=== PATIENT | female | born 1970 | race Caucasian/White ===

== ENCOUNTER 2016-07-15 14:49 | Emergency (ER) | payer BC, OTHER ==
[~2016-07-15] VITALS: Ht 165.1 cm; Wt 54.6 kg
[2016-07-15 14:58] VITALS: TEMP 36.6; Ht 165.1 cm; Wt 54.6 kg
[2016-07-15 16:26] LABS: BASO % 0.4 %; BASO ABS # 0.05 K/uL (0-0.2); COMPLETE YES; EOS % 0.3 %; HEMATOCRIT 40.6 % (37-47); IG% 0.3 %; LYMPH % 23.9 %; LYMPH ABS # 2.92 K/uL (1.2-3.4); MEAN CELL VOLUME 90.2 fL (80-100); MEAN CORPUSCULAR HEMOGLOBIN 30.9 pg (25-34); MEAN CORPUSCULAR HGB CONC 34.2 g/dl (32-36); MEAN PLATELET VOLUME 9.5 fL (7.4-10.4); MONO % 6.7 %; NEUT % 68.4 %; PLATELET COUNT 332 K/uL (130-400); WHITE BLOOD COUNT 12.23 K/uL (4.8-10.8)
--- NOTE | 2016-07-15 16:35 | DIAGNOSTIC IMAGING REPORT ---
CHEST ONE VIEW PORTABLE CLINICAL HISTORY: Atypical chest pain COMPARISON STUDY: No previous studies for comparison. FINDINGS: The cardiac and mediastinal contours are normal. There is no evidence of focal pulmonary consolidation. There is no evidence of failure. No pleural effusions are visualized.[ There are minimal basilar atelectatic changes. No pneumothorax is visualized. IMPRESSION: No active disease in the chest. Electronically signed by: Earl Adair M.D. 07/15/2016 4:34 PM Dictated Date/Time: 07/15/2016 4:33 PM
[2016-07-15] MEDS ORDERED: ALEN70TA2 PO (16:45)
[2016-07-15] MEDS ORDERED: ONDA4TAB46 PO (16:45)
[2016-07-15] MEDS ORDERED: ASPI81TA28 PO (16:45)
[2016-07-15] MEDS ORDERED: ERGO500037 PO (16:45)
[2016-07-15] MEDS ORDERED: CLON0.5T3 PO (16:45)
[2016-07-15] MEDS ORDERED: RMRS/45 PO (16:45)
[2016-07-15] MEDS ORDERED: MONT1TAB3 PO (16:45)
[2016-07-15] MEDS ORDERED: FLUD0.1T10 PO (16:45)
[2016-07-15] MEDS ORDERED: METO25TA3 PO (16:45)
[2016-07-15] MEDS ORDERED: NALT50TA5 PO (16:45)
[2016-07-15] MEDS ORDERED: VNTHFA/IN INH (16:45)
[2016-07-15] MEDS ORDERED: SERT-234 PO (16:45)
[2016-07-15] MEDS ORDERED: ADAL1KIT SC (16:45)
[2016-07-15] MEDS ORDERED: PANT40TA PO (16:45)
[2016-07-15] MEDS ORDERED: IBUP-1050 PO (16:45)
[2016-07-15] MEDS ORDERED: TRAZ1TAB52 PO (16:45)
[2016-07-15 16:47] LABS: BUN/CREATININE RATIO 17.9 (10-20); CALCIUM 8.9 mg/dl (8.5-10.1); CREATININE 0.8 mg/dl (0.60-1.20)
[2016-07-15 16:49] LABS: ALB/GLOB RATIO 1.2 (0.9-2)
--- NOTE | 2016-07-15 17:31 | EMERGENCY ROOM VISIT NOTE ---
History First contact with patient: 15:57 Chief Complaint: CHEST PAIN Stated Complaint: SEVERE CHEST PAIN WHEN BREATHING Nursing Triage Summary: Patient reports sharp pain in chest and back states it is worse with a deep breath. Patient was at [facility] prior to coming here. Denies any cardiac history. History of Present Illness The patient is a 45 year old female who presents to the Emergency Room with complaints of sharp right-sided back pain with radiation into the chest which began last night. The patient states that the pain radiates from her back into her chest. She states it is worse with movement and deep breath. She rates the discomfort a 10/10 and has not been taking any medication for pain. The patient reports that she has been weak recently. She denies any fevers, chills , cough, shortness of breath, abdominal pain, nausea or vomiting. The pain does not radiate into the arms or jaw. She does report that she has a family history of cardiac disease in her mother and a family history of blood clots in her father. She denies any personal history of cardiac disease or blood clots. She is not a smoker, denies taking control pills and has not had any recent travel. She denies any recent leg pain or swelling. The patient does report a history of anorexia and psoriatic arthritis. Review of Systems A complete 10-point Review of Systems was discussed with the patient, with pertinent positives and negatives listed in the History of Present Illness. All remaining Review of Systems questions can be considered negative unless otherwise specified. Past Medical/Surgical History Anorexia, psoriatic arthritis Social History Smoking Status: Never Smoker Alcohol Use: none Marital Status: Housing Status: lives with significant other Current/Historical Medications Scheduled Adalimumab (Humira), 40 MG SC [id number] Alendronate Sodium (Fosamax), 70 MG PO WK Aspirin (Aspirin Ec), 81 MG PO DIRECTED Clonazepam (Klonopin), 1.25 MG PO DIRECTED Ergocalciferol (Vitamin D 45546 Unit), 50,000 UNIT PO WK Fludrocortisone Acetate (Florinef), 200 MCG PO QAM Metoprolol Succinate (Toprol Xl), 12.5 MG PO BID Mirtazapine (Mirtazapine), 45 MG PO HS Montelukast Sodium (Singulair), 10 MG PO QAM Naltrexone Hcl (Naltrexone Hcl), 1 TAB PO HS Pantoprazole (Protonix), 40 MG PO QAM Sertraline (Zoloft), 300 MG PO QAM Trazodone Hcl (Desyrel), 150 MG PO HS Scheduled PRN Albuterol Hfa (Ventolin Hfa), 2-4 PUFFS INH Q6H PRN for Shortness of Breath Ibuprofen (Advil), 200-600 MG PO Q4H PRN for Pain or Fever Ondansetron Hcl (Zofran), 4 MG PO for Nausea Allergies Coded Allergies: Cephalexin (Verified Allergy, Severe, HIVES, 07/15/16) Cephalosporins (Verified Allergy, Severe, HIVES, 07/15/16) Adhesives (Verified Allergy, Intermediate, SKIN BLISTERS, 07/15/16) Physical Exam Vital Signs Date Time Temp Pulse Resp B/P Pulse Ox O2 Delivery O2 Flow Rate FiO2 07/15/16 17:43 67 20 97/55 95 07/15/16 14:58 36.6 73 20 108/69 97 Room Air Physical Exam VITALS: Vitals are noted on the nurse's note and reviewed by myself. Vital signs stable. GENERAL: This is a 45-year-old female, in no acute distress, nondiaphoretic, well-developed well-nourished. SKIN: Capillary reflex less than 2 seconds. HEENT: Normocephalic. PERRLA. EOMI. Nares patent. Mucous membranes moist. Neck is supple without nuchal rigidity. HEART: Regular rate and rhythm without murmurs gallops or rubs. LUNGS: Clear to auscultation bilaterally without wheezes, rales or rhonchi. No retractions or accessory muscle use. ABDOMEN: Positive bowel sounds x 4. Soft, nontender. MUSCULOSKELETAL: No tenderness to palpation of the back or chest wall. NEURO: Patient was alert and oriented to person place and time. Normal sensation to light and sharp touch. Medical Decision & Procedures ER Provider Diagnostic Interpretation: CHEST ONE VIEW PORTABLE CLINICAL HISTORY: Atypical chest pain COMPARISON STUDY: No previous studies for comparison. FINDINGS: The cardiac and mediastinal contours are normal. There is no evidence of focal pulmonary consolidation. There is no evidence of failure. No pleural effusions are visualized.[ There are minimal basilar atelectatic changes. No pneumothorax is visualized. IMPRESSION: No active disease in the chest. Laboratory Results 07/15/16 16:10 Red Blood Count 4.50, Mean Corpuscular Volume 90.2, Mean Corpuscular Hemoglobin 30.9, Mean Corpuscular Hemoglobin Concent 34.2, Mean Platelet Volume 9.5, Neutrophils (%) (Auto) 68.4, Lymphocytes (%) (Auto) 23.9, Monocytes (%) (Auto) 6.7, Eosinophils (%) (Auto) 0.3, Basophils (%) (Auto) 0.4, Neutrophils # (Auto) 8.36, Lymphocytes # (Auto) 2.92, Monocytes # (Auto) 0.82, Eosinophils # (Auto) 0.04, Basophils # (Auto) 0.05 07/15/16 16:10 Test 07/15/16 16:10 07/15/16 16:23 White Blood Count 12.23 K/uL (4.8-10.8) Red Blood Count 4.50 M/uL (4.2-5.4) Hemoglobin 13.9 g/dL (12.0-16.0) Hematocrit 40.6 % (37-47) Mean Corpuscular Volume 90.2 fL (80-100) Mean Corpuscular Hemoglobin 30.9 pg (25-34) Mean Corpuscular Hemoglobin Concent 34.2 g/dl (32-36) Platelet Count 332 K/uL (130-400) Mean Platelet Volume 9.5 fL (7.4-10.4) Neutrophils (%) (Auto) 68.4 % Lymphocytes (%) (Auto) 23.9 % Monocytes (%) (Auto) 6.7 % Eosinophils (%) (Auto) 0.3 % Basophils (%) (Auto) 0.4 % Neutrophils # (Auto) 8.36 K/uL (1.4-6.5) Lymphocytes # (Auto) 2.92 K/uL (1.2-3.4) Monocytes # (Auto) 0.82 K/uL (0.11-0.59) Eosinophils # (Auto) 0.04 K/uL (0-0.5) Basophils # (Auto) 0.05 K/uL (0-0.2) RDW Standard Deviation 43.9 fL (36.4-46.3) RDW Coefficient of Variation 13.3 % (11.5-14.5) Immature Granulocyte % (Auto) 0.3 % Immature Granulocyte # (Auto) 0.04 K/uL (0.00-0.02) D-Dimer < 190 ug/L FEU (0-500) Anion Gap 6.0 mmol/L (3-11) Est Creatinine Clear Calc Drug Dose 74.9 ml/min Estimated GFR () 101.8 Estimated GFR (Non- 87.8 BUN/Creatinine Ratio 17.9 (10-20) Calcium Level 8.9 mg/dl (8.5-10.1) Total Bilirubin 0.3 mg/dl (0.2-1) Aspartate Amino Transf (AST/SGOT) 13 U/L (15-37) Alanine Aminotransferase (ALT/SGPT) 20 U/L (12-78) Alkaline Phosphatase 98 U/L (45-117) Total Protein 7.6 gm/dl (6.4-8.2) Albumin 4.1 gm/dl (3.4-5.0) Globulin 3.5 gm/dl (2.5-4.0) Albumin/Globulin Ratio 1.2 (0.9-2) Bedside Troponin I 0.000 ng/ml (0-0.045) Medications Administered Medications (Trade) Dose Ordered Sig/Kandy Route Start Time Stop Time Status Last Admin Dose Admin Acetaminophen (Tylenol Tab) 650 mg STK-MED ONCE .ROUTE 07/15/16 17:42 07/15/16 17:44 DC 07/15/16 17:53 650 MG ECG Rate (beats per minute): 75 Rhythm: normal sinus Findings: no acute ischemic change, no ectopy Change: no significant change Medical Decision Differential diagnosis includes acute coronary syndrome, pulmonary embolism, pneumothorax, pericarditis, myocarditis, endocarditis, anxiety, musculoskeletal pain, GERD, costochondritis, among others. The patient was evaluated as above. Labs were drawn and IV access was obtained. Imaging studies were performed and read by radiology as above. The patient was medicated with Tylenol for pain. The patient was reassessed multiple times during their stay in the emergency department and remained in stable condition. The patient is a 45-year-old female who presents today complaining of right- sided back pain with radiation into the chest. Labs revealed a mild leukocytosis of unclear significance, possibly due to stress. No concerning anemia or electrolyte abnormalities. Troponin was not elevated. D-dimer was not elevated. EKG showed a normal sinus rhythm without any evidence of ischemia. Given the patient's negative d-dimer and low risk of pulmonary embolism, I did not feel that further workup was necessary to rule out PE. Chest x-ray was unremarkable. I do feel the patient is likely suffering from a muscle spasm. She has a follow-up appointment scheduled with her primary care provider tomorrow and was informed that she should have further outpatient testing to rule out any cardiac disease. She will return sooner for any worsening of her current condition or new/concerning symptoms. Based on the patient's presentation, lab results, and imaging studies, I feel the patient is stable for outpatient treatment. The patient's case was reviewed with Dr. Burgess, ED attending physician, who agreed with my assessment and treatment plan. Discharge instructions were reviewed with the patient. The patient verbalized understanding of my assessment and treatment plan and was discharged home in good condition. Impression Primary Impression: Right-sided chest pain Departure Information Dispostion Home / Self-Care Condition GOOD Referrals Rebecca Byrd M.D. (PCP) Patient Instructions My [facility] Additional Instructions You have been treated in the Emergency Department for your Chest Pain. Laboratory results and Imaging Studies have ruled out any acute cardiac or pulmonary cause of your chest pain. For pain control, you can use the following [id number] medicines (if >12 yo): - Regular strength (325mg/tab) Tylenol (acetaminophen) 2 tabs every 4-6 hours as needed. Do not exceed 12 tablets in a 24 hour period. Avoid taking more than 4 grams (4000 mg) of Tylenol per day. This includes any other sources of acetaminophen you may take on a regular basis. - Regular strength (200 mg/tab) Advil (ibuprofen) 1-2 tabs every 4-6 hours as needed. Do not exceed a dose of 3200 mg per day. Follow-up with your primary care provider as scheduled. Return to the Emergency Department if your current symptoms worsen despite treatment course outlined above, or if you develop any of the following symptoms : worsening chest pain, associated jaw/arm pain, nausea, dizziness, shortness of breath, bloody cough, or fainting.
[2016-07-15] MEDS ORDERED: ACETAMINOPHEN 325 MG TAB ONE (17:42)
[2016-07-15 17:43] VITALS: BP 97/55; PULSE 67; O2SAT 95
== END 2016-07-15 17:55 | disposition home or self-care (01) ==
LOC: C.EDB 14:50 → C.EDC 17:55
DX: R07.9 Chest pain, unspecified (principal); M54.9 Dorsalgia, unspecified; D72.829 Elevated white blood cell count, unspecified; Z79.82 Long term (current) use of aspirin; Z79.899 Other long term (current) drug therapy; Z88.8 Allergy status to other drugs, medicaments and biological substances; Z91.09 Other allergy status, other than to drugs and biological substances

== ENCOUNTER 2017-05-06 10:37 | Emergency (ER) | payer BC, OTHER ==
[~2017-05-06] VITALS: Ht 165.1 cm; Wt 59.2 kg
[~2017-05-06 10:37] MED LIST: ADAL1KIT SC; ALEN70TA2 PO; ASPI81TA28 PO; ERGO500037 PO; FLUD0.1T10 PO; IBUP-1050 PO; KLN/5 PO; METO25TA4 PO; MONT1TAB3 PO; NALT50TA5 PO; ONDA4TAB46 PO; PANT40TA PO; RMRS/45 PO; SERT-234 PO; TRAZ1TAB52 PO; VNTHFA/IN INH
[2017-05-06 10:46] VITALS: TEMP 36.5; Ht 165.1 cm; Wt 59.2 kg
[2017-05-06] MEDS ORDERED: NITROGLYCERIN OINT 2% 1GM PACKET EXT STA (10:56)
[2017-05-06] MEDS ORDERED: ASPIRIN 81 MG CHEW PO STA (10:56)
[2017-05-06 10:57] VITALS: O2SAT 95
--- NOTE | 2017-05-06 11:03 | EMERGENCY ROOM VISIT NOTE ---
History Report prepared by Mary: Dennis Davenport Under the Supervision of: Dr. Jd Dee M.D. First contact with patient: 10:51 Chief Complaint: CHEST PAIN Stated Complaint: CHEST PAIN History of Present Illness The patient is a 46 year old female who presents to the Emergency Room with complaints of persistent chest pain that started yesterday afternoon. She states that the pain came on when she was working, and she is a caregiver for the elderly. The patient says that the pain is a bit better now, and currently rates her discomfort as a 6 out of 10 in severity. She notes that the pain was at worst a 9 out of 10 yesterday. She says that resting may have improved the pain. She adds that the pain radiates into her back, and deep breathing worsens her back pain. The patient states that movement does not worsen the pain. She notes that she has been getting short of breath at times over the past month, and that is unusual for her. The patient adds that she was sweaty yesterday. She notes that she has a history of hyperlipidemia, and her mother of a heart attack at the age of 56. The patient says that her last stress test was a long time ago. She adds that she has a hole in her heart. The patient notes no history of blood clots in her legs or lungs. She is an ex-smoker but did smoke for 30 years. The patient did not take Aspirin today. Source of History: patient, spouse/significant other Onset: Yesterday afternoon Position: chest Symptom Intensity: 9/10 at worst Timing: other (persistent) Associated Symptoms: + diaphoresis, + SOB (over past month), + back pain Note: No other associated symptoms noted. Review of Systems See HPI for pertinent positives & negatives. A total of 10 systems reviewed and were otherwise negative. Past Medical & Surgical Medical Problems: (1) Anorexia nervosa (2) Anxiety (3) Asthma, moderate persistent (4) MEG III (cervical intraepithelial neoplasia III) (5) Depression (6) GERD (gastroesophageal reflux disease) (7) Osteoporosis (8) Psoriatic arthropathy (9) PTSD (post-traumatic stress disorder) Family History Cancer FH: heart disease Hypertension Social History Smoking Status: Former Smoker Alcohol Use: none Marital Status: Housing Status: lives with significant other Current/Historical Medications Scheduled Adalimumab (Humira), 40 MG SC [id number] Alendronate Sodium (Fosamax), 70 MG PO WK Aripiprazole (Abilify), 1 TAB PO DAILY Aspirin (Aspirin Ec), 81 MG PO DAILY Calcium/Vitamin D (Os-Lexa 500 Plus D), 1 TAB PO BID Ergocalciferol (Vitamin D 23972 Unit), 50,000 UNIT PO WK Fludrocortisone Acetate (Florinef), 200 MCG PO QAM Metoprolol Tartrate (Lopressor), 12.5 MG PO BID Mirtazapine (Mirtazapine), 45 MG PO HS Montelukast Sodium (Singulair), 10 MG PO QAM Naltrexone Hcl (Naltrexone Hcl), 1 TAB PO HS Pantoprazole (Protonix), 40 MG PO QAM Sertraline (Zoloft), 300 MG PO QAM Trazodone Hcl (Trazodone), 75 MG PO HS Scheduled PRN Albuterol Hfa (Ventolin Hfa), 2-4 PUFFS INH Q6H PRN for Shortness of Breath Hydroxyzine Pamoate (Vistaril), 1 CAP PO TID PRN for Itching Ibuprofen (Advil), 200-600 MG PO Q4H PRN for Pain or Fever Ondansetron Hcl (Zofran), 4 MG PO for Nausea Allergies Coded Allergies: Cephalexin (Verified Allergy, Severe, HIVES, 05/06/17) Cephalosporins (Verified Allergy, Severe, HIVES, 05/06/17) Adhesives (Verified Allergy, Intermediate, SKIN BLISTERS, 05/06/17) Physical Exam Vital Signs Date Time Temp Pulse Resp B/P (MAP) Pulse Ox O2 Delivery O2 Flow Rate FiO2 05/06/17 17:04 92 18 94/64 96 05/06/17 16:05 90 17 111/62 96 Room Air 05/06/17 14:10 92 19 05/06/17 14:00 109/52 05/06/17 13:40 96 22 05/06/17 13:12 94 05/06/17 13:10 90 15 05/06/17 13:05 93 15 05/06/17 13:00 109/62 05/06/17 12:35 90 17 05/06/17 12:05 93 17 05/06/17 12:00 97/59 05/06/17 11:52 95 20 05/06/17 11:37 92 16 05/06/17 11:22 89 21 05/06/17 11:19 112/75 05/06/17 11:19 94 112/75 05/06/17 11:14 Room Air 05/06/17 11:07 101 22 05/06/17 11:00 122/78 05/06/17 10:57 95 Room Air 05/06/17 10:55 107 05/06/17 10:54 116/63 05/06/17 10:46 36.5 101 18 117/74 97 Room Air Physical Exam GENERAL: Patient is in no acute distress. HEENT: No acute trauma, normocephalic atraumatic, mucous membranes moist, no nasal congestion, no scleral icterus. NECK: No stridor, no adenopathy, no meningismus, trachea is midline. LUNGS: Clear to auscultation bilaterally, no wheeze, no rhonchi, breath sounds equal. HEART: Without murmurs gallops or rubs, regular rate and rhythm. ABDOMEN: Soft, nontender, bowel sounds positive, no hernias, no peritonitis. EXTREMITIES: No cyanosis or edema, full range of motion of all the joints without pain or difficulty, no signs for acute trauma. NEUROLOGIC: Oriented x 3, no acute motor or sensory deficits, no focal weakness. SKIN: No rash, no jaundice, no diaphoresis. Medical Decision & Procedures ER Provider Diagnostic Interpretation: X-ray results as stated below per interpretation by me and the radiologist: SINGLE VIEW CHEST CLINICAL HISTORY: Atypical chest pain. FINDINGS: An AP, portable, upright chest radiograph is compared to study dated 07/15/2016. The examination is degraded by portable technique and apical lordotic positioning. The cardiomediastinal silhouette is unremarkable. The lungs and pleural spaces are clear. No pneumothorax is seen. The bony thorax is grossly intact. IMPRESSION: No active disease in the chest. Electronically signed by: Jd Dey M.D. 05/06/2017 11:20 AM Dictated Date/Time: 05/06/2017 11:19 AM Laboratory Results 05/06/17 11:21 05/06/17 11:21 Test 05/06/17 11:21 05/06/17 14:12 Red Blood Count 4.97 M/uL (4.2-5.4) Mean Corpuscular Volume 91.5 fL (80-100) Mean Corpuscular Hemoglobin 32.0 pg (25-34) Mean Corpuscular Hemoglobin Concent 34.9 g/dl (32-36) RDW Standard Deviation 43.4 fL (36.4-46.3) RDW Coefficient of Variation 13.0 % (11.5-14.5) Mean Platelet Volume 9.3 fL (7.4-10.4) Prothrombin Time 10.2 SECONDS (9.0-12.0) Prothromb Time International Ratio 1.0 (0.9-1.1) Activated Partial Thromboplast Time 26.4 SECONDS (21.0-31.0) Partial Thromboplastin Ratio 1.0 Anion Gap 5.0 mmol/L (3-11) Est Creatinine Clear Calc Drug Dose 81.5 ml/min Estimated GFR () 107.5 Estimated GFR (Non- 92.8 BUN/Creatinine Ratio 15.3 (10-20) Calcium Level 9.2 mg/dl (8.5-10.1) Total Bilirubin 0.5 mg/dl (0.2-1) Aspartate Amino Transf (AST/SGOT) 13 U/L (15-37) Alanine Aminotransferase (ALT/SGPT) 18 U/L (12-78) Alkaline Phosphatase 106 U/L (45-117) Total Protein 7.7 gm/dl (6.4-8.2) Albumin 3.9 gm/dl (3.4-5.0) Globulin 3.8 gm/dl (2.5-4.0) Albumin/Globulin Ratio 1.0 (0.9-2) Troponin I < 0.015 ng/ml (0-0.045) Laboratory results reviewed by me. Medications Administered Medications (Trade) Dose Ordered Sig/Kandy Route Start Time Stop Time Status Last Admin Dose Admin Nitroglycerin (Nitroglycerin 2% Oint) 1 inch NOW STAT EXT 05/06/17 10:56 05/06/17 11:00 DC 05/06/17 11:09 1 INCH Aspirin (Aspirin Chew) 324 mg NOW STAT PO 05/06/17 10:56 05/06/17 11:00 DC 05/06/17 11:10 324 MG ECG Indication: chest pain Rate (beats per minute): 91 Rhythm: normal sinus Findings: no acute ischemic change, no ectopy ED Course 1053: The patient was evaluated in room B4B. A complete history and physical exam was performed. 1056: Ordered Aspirin Chew 324 mg PO, Nitroglycerin 2% Oint 1 inch EXT. 1225: Upon reexamination the patient is resting comfortably. I discussed results and treatment plan with the patient. She verbalizes agreement and understanding. The patient will be evaluated for further management. 1237: Discussed the patient's case with Carolina Remy. The patient will be evaluated for further management. 1700: The patient was seen by the hospitalist. The patient got a stress echo and a second troponin, and the hospitalist recommends that the patient be discharged with outpatient follow-up. I reevaluated the patient, and she is agreeable with the plan. Medical Decision Differential diagnosis includes but is not limited to angina, [place], musculoskeletal pain, PE, aortic dissection, anemia, electrolyte imbalance. There is no leukocytosis or concerning anemia. No significant electrolyte abnormality, kidney failure or hepatitis. EKG shows a normal sinus rhythm, no acute ischemia. Cardiac enzyme testing times one is not consistent with acute cardiac injury. Chest film does not show pneumonia, mediastinal widening or pneumothorax. The patient was given oral aspirin and Nitropaste. This medication regimen seemed to improve her symptoms. Given the patient's cardiac risk factors, given her description of pain and her response to nitroglycerin and aspirin, I did feel a further cardiac workup was warranted. I spoke with case management and the patient. The on-call hospitalist was consulted. The patient was seen by the hospitalist and a stress test was ordered. This returned negative. A second troponin returned negative. A gallbladder ultrasound returned negative. The hospitalist group felt the patient could be discharged with outpatient follow-up. Patient was amendable to this plan. The patient was discharged and encouraged to return for worsening symptoms. She will take aspirin daily. Medication Reconcilliation Current Medication List: was personally reviewed by me Blood Pressure Screening Patient's blood pressure: Normal blood pressure Consults Time Called: 1235 Consulting Physician: Carolina Remy Returned Call: [phone] Discussed the patient's case with Carolina Remy. The patient will be evaluated for further management. Impression Primary Impression: Precordial chest pain Scribe Attestation The scribe's documentation has been prepared under my direction and personally reviewed by me in its entirety. I confirm that the note above accurately reflects all work, treatment, procedures, and medical decision making performed by me. Departure Information Dispostion Home / Self-Care Referrals Rebecca Byrd M.D. (PCP) Forms Call Back Authorization, HOME CARE DOCUMENTATION FORM, IMPORTANT VISIT INFORMATION Patient Instructions My [facility] Additional Instructions follow the advice of the medical doctors see adonis jasso next week for a recheck return for worsening pain or symptoms continue the meds as before stress test today was negative
--- NOTE | 2017-05-06 11:21 | DIAGNOSTIC IMAGING REPORT ---
SINGLE VIEW CHEST CLINICAL HISTORY: Atypical chest pain. FINDINGS: An AP, portable, upright chest radiograph is compared to study dated 07/15/2016. The examination is degraded by portable technique and apical lordotic positioning. The cardiomediastinal silhouette is unremarkable. The lungs and pleural spaces are clear. No pneumothorax is seen. The bony thorax is grossly intact. IMPRESSION: No active disease in the chest. Electronically signed by: Jd Dey M.D. 05/06/2017 11:20 AM Dictated Date/Time: 05/06/2017 11:19 AM
[2017-05-06 11:39] LABS: HEMATOCRIT 45.5 % (37-47); HEMOGLOBIN 15.9 g/dL (12.0-16.0); MEAN CELL VOLUME 91.5 fL (80-100); MEAN CORPUSCULAR HGB CONC 34.9 g/dl (32-36); MEAN PLATELET VOLUME 9.3 fL (7.4-10.4); PLATELET COUNT 325 K/uL (130-400); RED CELL DISTRIBUTION WIDTH SD 43.4 fL (36.4-46.3); WHITE BLOOD COUNT 9.99 K/uL (4.8-10.8)
[2017-05-06 11:54] LABS: PTT PATIENT 26.4 SECONDS (21.0-31.0)
[2017-05-06 11:56] LABS: ALBUMIN 3.9 gm/dl (3.4-5.0); ALT/SGPT 18 U/L (12-78); BLOOD UREA NITROGEN 12 mg/dl (7-18); CALCIUM 9.2 mg/dl (8.5-10.1); CARBON DIOXIDE 28 mmol/L (21-32); CREATININE 0.76 mg/dl (0.60-1.20); GLUCOSE 89 mg/dl (70-99); POTASSIUM 3.8 mmol/L (3.5-5.1); SODIUM 136 mmol/L (136-145)
[2017-05-06 12:01] LABS: ALKALINE PHOSPHATASE 106 U/L (45-117); AST/SGOT 13 U/L (15-37); TOTAL PROTEIN 7.7 gm/dl (6.4-8.2)
[2017-05-06] MEDS ORDERED: TRAZ50TA35 PO (12:15)
[2017-05-06] MEDS ORDERED: NITROGLYCERIN 0.4 MG SL PER TAB CHARGE SL PRN (13:15)
[2017-05-06] MEDS ORDERED: ONDANSETRON INJ 2 MG/ML 2 ML VIAL IV PRN (13:15)
[2017-05-06] MEDS ORDERED: ACETAMINOPHEN 325 MG TAB PO PRN (13:15)
[2017-05-06] MEDS ORDERED: ATORVASTATIN 40 MG TAB PO SCH (13:45)
[2017-05-06] MEDS ORDERED: LPR25 PO (13:51)
[2017-05-06] MEDS ORDERED: HYDR25CA PO (13:51)
[2017-05-06] MEDS ORDERED: CALC500C70 PO (13:51)
[2017-05-06] MEDS ORDERED: ABL/5 PO (13:51)
[2017-05-06] MEDS ORDERED: IV FLUIDS COMPLETED PRN ×2 (14:00→16:00)
--- NOTE | 2017-05-06 15:41 | Medical Consult ---
Consultation Date of Consultation: May 06, 2017. Attending Physician: Dr. Navarro Reason for Consultation: Chest Pain, Evaluate for Admission History of Present Illness 46 year old female who presented to the ED with chest pain. Patient reports she was at rest last night when she developed a pain under left breast. She describes the pain as a stabbing pain. She rates the pain #9/10. The pain has eased up since then however has not totally resolved. She reports the pain was # 6/10 this morning. Pain has been radiating into her left shoulder. She has had some occasional diaphoresis, lightheadedness, and shortness of breath. No specific causative or alleviating factors. Pain decreased with topical nitro given in the ED. She reports she has had worsening fatigue over the past couple of weeks. She denies any recent illnesses, fever, or chills. No abdominal pain, nausea, vomiting, or diarrhea. She denies any urinary symptoms. In the ED, patient's initial troponin is negative and EKG does not show any acute ST changes. Past Medical/Surgical History Medical Problems: (1) Anorexia nervosa Status: Chronic (2) Anxiety Status: Chronic (3) Asthma, moderate persistent Status: Chronic (4) MEG III (cervical intraepithelial neoplasia III) Status: Chronic (5) Depression Status: Chronic (6) GERD (gastroesophageal reflux disease) Status: Chronic (7) Osteoporosis Status: Chronic (8) Psoriatic arthropathy Status: Chronic (9) PTSD (post-traumatic stress disorder) Status: Chronic Social History Smoking Status: Former Smoker Alcohol Use: none Allergies Coded Allergies: Cephalexin (Verified Allergy, Severe, HIVES, 05/06/17) Cephalosporins (Verified Allergy, Severe, HIVES, 05/06/17) Adhesives (Verified Allergy, Intermediate, SKIN BLISTERS, 05/06/17) Home Medications Os-Lexa 500 Plus D (Calcium/Vitamin D) Tab 1 Tab PO BID Lopressor (Metoprolol Tartrate) 25 Mg Tab 12.5 Mg PO BID Abilify (Aripiprazole) 5 Mg Tab 1 Tab PO DAILY 30 Days Vistaril (Hydroxyzine Pamoate) 25 Mg Cap 1 Cap PO TID PRN 30 Days Trazodone (Trazodone HCl) 50 Mg Tab 75 Mg PO HS Naltrexone Hcl 50 Mg Tab 1 Tab PO HS 30 Days Fosamax (Alendronate Sodium) 70 Mg Tab 70 Mg PO WK Singulair (Montelukast Sodium) 10 Mg Tab 10 Mg PO QAM Protonix (Pantoprazole Sodium) 40 Mg Tab 40 Mg PO QAM Vitamin D 56248 Unit (Ergocalciferol) 50,000 Unit Cap 50,000 Unit PO WK Mirtazapine 45 Mg Tab 45 Mg PO HS Florinef (Fludrocortisone Acetate) 0.1 Mg Tab 200 Mcg PO QAM Aspirin Ec (Aspirin) 81 Mg Tab 81 Mg PO DAILY Advil (Ibuprofen) 200 Mg Tab 200-600 Mg PO Q4H PRN Humira (Adalimumab) 40 Mg/0.8 Ml Kit 40 Mg SC [id number] Ventolin Hfa (Albuterol) 200 Puffs/[id number] Mcg Aers 2-4 Puffs INH Q6H PRN Zofran (Ondansetron HCl) 4 Mg Tab 4 Mg PO PRN Zoloft (Sertraline HCl) 100 Mg Tab 300 Mg PO QAM Current Inpatient Medications Current Inpatient Medications Medications (Trade) Dose Ordered Sig/Kandy Route Start Time Stop Time Status Last Admin Dose Admin Enoxaparin Sodium (Lovenox Inj) 40 mg Q24H SC 05/06/17 13:15 06/05/17 13:14 UNV Acetaminophen (Tylenol Tab) 650 mg Q4H PRN PO 05/06/17 13:15 06/05/17 13:14 Ondansetron HCl (Zofran Inj) 4 mg Q6H PRN IV 05/06/17 13:15 06/05/17 13:14 Nitroglycerin (Nitrostat Tab) 0.4 mg UD PRN SL 05/06/17 13:15 06/05/17 13:14 Aspirin (Ecotrin Tab) 81 mg QAM PO 05/07/17 09:00 06/06/17 08:59 UNV Atorvastatin Calcium (Lipitor Tab) 40 mg QAM PO 05/06/17 13:45 06/05/17 13:44 UNV Miscellaneous (Iv Fluids Completed) 1 ea PRN PRN N/A 05/06/17 14:00 05/06/18 13:59 Review of Systems ROS per HPI, all other systems reviewed and negative Physical Exam Date Time Temp Pulse Resp B/P (MAP) Pulse Ox O2 Delivery O2 Flow Rate FiO2 05/06/17 14:10 92 19 05/06/17 14:00 109/52 05/06/17 13:40 96 22 05/06/17 13:12 94 05/06/17 13:10 90 15 05/06/17 13:05 93 15 05/06/17 13:00 109/62 05/06/17 12:35 90 17 05/06/17 12:05 93 17 05/06/17 12:00 97/59 05/06/17 11:52 95 20 05/06/17 11:37 92 16 05/06/17 11:22 89 21 05/06/17 11:19 112/75 05/06/17 11:19 94 112/75 05/06/17 11:14 Room Air 05/06/17 11:07 101 22 05/06/17 11:00 122/78 05/06/17 10:57 95 Room Air 05/06/17 10:55 107 05/06/17 10:54 116/63 05/06/17 10:46 36.5 101 18 117/74 97 Room Air General Appearance: WD/WN, no apparent distress Head: normocephalic, atraumatic Eyes: normal inspection, EOMI, sclerae normal ENT: hearing grossly normal, + pertinent finding (mucous membranes moist) Neck: supple, no JVD, trachea midline Respiratory/Chest: lungs clear, normal breath sounds, no respiratory distress Cardiovascular: regular rate, rhythm, no edema, normal peripheral pulses Abdomen/GI: normal bowel sounds, non tender, soft, no organomegaly Extremities/Musculoskelatal: normal inspection, no calf tenderness, normal capillary refill Neurologic/Psych: no motor/sensory deficits, alert, normal mood/affect, oriented x 3 Skin: normal color, warm/dry Laboratory Results Last 24 Hours Test 05/06/17 11:21 05/06/17 14:12 White Blood Count 9.99 K/uL Red Blood Count 4.97 M/uL Hemoglobin 15.9 g/dL Hematocrit 45.5 % Mean Corpuscular Volume 91.5 fL Mean Corpuscular Hemoglobin 32.0 pg Mean Corpuscular Hemoglobin Concent 34.9 g/dl RDW Standard Deviation 43.4 fL RDW Coefficient of Variation 13.0 % Platelet Count 325 K/uL Mean Platelet Volume 9.3 fL Prothrombin Time 10.2 SECONDS Prothromb Time International Ratio 1.0 Activated Partial Thromboplast Time 26.4 SECONDS Partial Thromboplastin Ratio 1.0 Sodium Level 136 mmol/L Potassium Level 3.8 mmol/L Chloride Level 103 mmol/L Carbon Dioxide Level 28 mmol/L Anion Gap 5.0 mmol/L Blood Urea Nitrogen 12 mg/dl Creatinine 0.76 mg/dl Est Creatinine Clear Calc Drug Dose 81.5 ml/min Estimated GFR () 107.5 Estimated GFR (Non- 92.8 BUN/Creatinine Ratio 15.3 Random Glucose 89 mg/dl Calcium Level 9.2 mg/dl Total Bilirubin 0.5 mg/dl Aspartate Amino Transf (AST/SGOT) 13 U/L Alanine Aminotransferase (ALT/SGPT) 18 U/L Alkaline Phosphatase 106 U/L Troponin I < 0.015 ng/ml < 0.015 ng/ml Total Protein 7.7 gm/dl Albumin 3.9 gm/dl Globulin 3.8 gm/dl Albumin/Globulin Ratio 1.0 Assessment & Plan Patient was seen and examined in the ED. Given the fact that her troponin is negative, EKG is without acute ST changes, and that history is consistent with atypical chest pain, it was determined that patient would undergo a stress test today. Case was discussed with Dr. Linares from cardiology. If patient's stress test is negative, patient can be discharged home with follow up with PCP. Also due to radiation of the pain into the left shoulder, would recommend checking RUQ US to rule out gallbladder etiology. Outpatient records were reviewed and patient did have a recent abnormal lipid panel. Patient was discuss this with her PCP follow up appointment that I made for her. Patient should continue all of her other medications as previously prescribed. Attending Addendum: The patient was seen and examined in ER in presence of the . NO more Chest pain now Has had Negative Stress ECHO Awaiting US GB to R/O Gall stones O/E No apparent distress Chest-clear Heart-regular Abdomen-benign Extremities-negative Labs and Imaging studies reviewed After the US she can be discharged-discussed with dr Dee Has Appointment with Dr Byrd. Dr Penny Navarro
--- NOTE | 2017-05-06 16:35 | EXERCISE STRESS ECHO ---
*NOTICE TO RECEIVING REPUBL[employer] AGENCY This information is strictly Confidential and protected under [place] law. [place] law prohibits you from making any further disclosure of this information unless further disclosure is expressly permitted by the written consent of the person to whom it pertains or is authorized by law. A general authorization for the release of medical or other information is not sufficient for this purpose. Hospital accepts no responsibility if the information is made available to any other person, INCLUDING THE PATIENT. Interpretation Summary * Name: DAYO SINGLETON Study Date: 05/06/2017 02:28 PM BP: 101/56 mmHg * Patient Location: ED HR: 84 * : 1970 (M/d/yyyy) Gender: Female Height: 65 in * Age: 46 yrs Ethnicity: [place] Weight: 128 lb * Performed By: Thelma Prakash RDCS * * Reason For Study: CHEST PAIN * BSA: 1.6 m2 * The study was technically adequate. * -- Conclusions -- * STRESS STUDY: * Normal exercise stress echocardiogram. * No echocardiographic or ECG evidence of myocardial ischemia having achieved heart rate adequate for diagnostic purposes. * The heart rate response to exercise was normal. * The blood pressure response to exercise was normal. * No symptoms suggestive of angina were reported. * RESTING STUDY: * The LV Ejection Fraction = 55-60%. * There is no significant vavular heart disease. Procedure Details * ECHOEX, CPT #72765 * A contrast injection of Definity was performed to improve assessment of LV function. * Contrast was injected into an intravenous site in the right arm. * One vial of Definity ultrasound contrast was diluted in normal saline to a total volume of 10 ml. A total of '4' ml of solution was administered during imaging. * Lot # [id number] of Definity utilized for procedure. * Expiration date JUN 27. * The attending nurse who injected the contrast agent was HARPER VELASQUEZ/ BRENNEN MOISE RN. * ECHO DOPPLER, CPT #84323 * ECHO COLOR FLOW, CPT #91456 Left Ventricle * The left ventricle is normal in size. * There is normal left ventricular wall thickness. * Ejection Fraction = 55-60%. * Left ventricular systolic function is normal. * Resting wall motion: Normal. Stress wall motion: Appropriate increase in Left ventricular systolic function and decrease in cavity size. No stress induced segmental wall motion abnormalities. Right Ventricle * The right ventricle is normal in size and function. Atria * The left atrial size is normal. * Right atrial size is normal. * No ASD detected; PFO is not assessed. Mitral Valve * The mitral valve is normal. * There is no mitral valve stenosis. * Significant mitral regurgitation is absent. Tricuspid Valve * The tricuspid valve is normal. * There is no tricuspid stenosis. * Significant tricuspid regurgitation is absent. Aortic Valve * The aortic valve is trileaflet. * No hemodynamically significant valvular aortic stenosis. * No aortic regurgitation is present. Pulmonic Valve * The pulmonic valve is not well visualized. Great Vessels * The aortic root is normal size. Pericardium * There is no pericardial effusion. Stress Parameters * Normal baseline electrocardiogram. * The stress ECG response was normal * No arrhythmia were noted with stress. * The stress portion of this study was personally supervised by the undersigned interpreting physician. * Rest heart rate was '84' BPM. * Rest blood pressure was '101/56' * Maximum heart rate achieved was 155 bpm. * Maximum heart rate was 90 % of maximum age-predicted heart rate. * Maximum blood pressure was '160/68' * Total exercise time was '6:39' * Maximum exercise MET level achieved was '7.90' METS * Maximum treadmill speed was '3.40' miles per hour. * Maximum treadmill elevation was '14.00'% grade. * Exercise was terminated due to 'ACHIEVING TARGET HR' Left Ventricular Diastolic Function * Grade I diastolic dysfunction, (abnormal relaxation pattern). MMode 2D Measurements and Calculations IVSd 0.81 cm IVSs 1.3 cm LVIDd 4.1 cm LVIDs 2.9 cm LVPWd 0.92 cm LVPWs 1.3 cm IVS/LVPW 0.87 FS 30.3 % EDV(Teich) 74.7 ml ESV(Teich) 31.3 ml EF(Teich) 58.1 % EDV(cubed) 69.5 ml ESV(cubed) 23.6 ml EF(cubed) 66.1 % % IVS thick 56.7 % % LVPW thick 39.7 % LV mass(C)d 108.7 grams LV mass(C)dI 66.4 grams/m\S\2 LV mass(C)s 113.6 grams LV mass(C)sI 69.4 grams/m\S\2 SV(Teich) 43.4 ml SI(Teich) 26.5 ml/m\S\2 SV(cubed) 45.9 ml SI(cubed) 28.1 ml/m\S\2 Ao root diam 2.6 cm Ao root area 5.3 cm\S\2 LA dimension 2.7 cm LA/Ao 1.1 LVAd ap4 19.8 cm\S\2 LVLd ap4 7.2 cm EDV(MOD-sp4) 46.1 ml EDV(sp4-el) 45.9 ml LVAs ap4 12.1 cm\S\2 LVLs ap4 5.9 cm ESV(MOD-sp4) 21.8 ml ESV(sp4-el) 21.2 ml EF(MOD-sp4) 52.6 % EF(sp4-el) 53.8 % LVAd ap2 21.4 cm\S\2 LVLd ap2 7.5 cm EDV(MOD-sp2) 51.9 ml EDV(sp2-el) 52.0 ml LVAs ap2 12.9 cm\S\2 LVLs ap2 6.2 cm ESV(MOD-sp2) 23.4 ml ESV(sp2-el) 22.6 ml EF(MOD-sp2) 54.9 % EF(sp2-el) 56.5 % LVLd %diff 3.1 % EDV(MOD-bp) 50.0 ml LVLs %diff 5.7 % ESV(MOD-bp) 22.9 ml EF(MOD-bp) 54.2 % SV(MOD-sp4) 24.2 ml SI(MOD-sp4) 14.8 ml/m\S\2 SV(MOD-sp2) 28.5 ml SI(MOD-sp2) 17.4 ml/m\S\2 SV(MOD-bp) 27.1 ml SI(MOD-bp) 16.6 ml/m\S\2 SV(sp4-el) 24.7 ml SI(sp4-el) 15.1 ml/m\S\2 SV(sp2-el) 29.3 ml SI(sp2-el) 17.9 ml/m\S\2 Doppler Measurements and Calculations MV E max aditya 50.0 cm/sec MV A max aditya 58.2 cm/sec MV E/A 0.86 MV dec time 0.26 sec Ao V2 max 131.2 cm/sec Ao max PG 6.9 mmHg Ao max PG (full) 4.7 mmHg LV V1 max PG 2.1 mmHg LV V1 max 73.2 cm/sec
--- NOTE | 2017-05-06 16:35 | DIAGNOSTIC IMAGING REPORT ---
GALLBLADDER-ABD LIMITED CLINICAL HISTORY: abdominal pain, scapular pain pain. Edema. TECHNIQUE: Ultrasound COMPARISON STUDY: None FINDINGS: Small gallbladder polyp measuring 2 mm. Normal caliber bile ducts. Common bile duct 3 mm. Liver is uniform throughout. Pancreas and right kidney are unremarkable. IMPRESSION: Small gallbladder polyp. Normal caliber bile ducts. Otherwise normal study. The above report was generated using voice recognition software. It may contain grammatical, syntax or spelling errors. Electronically signed by: Jordan Arrieta M.D. 05/06/2017 4:33 PM Dictated Date/Time: 05/06/2017 4:31 PM
[2017-05-06 17:04] VITALS: BP 94/64; PULSE 92; O2SAT 96
[2017-05-06] MEDS ORDERED: ENOXAPARIN 40 MG/0.4 ML SYR SC SCH (21:00)
[2017-05-07] MEDS ORDERED: ASPIRIN 81 MG ECTAB PO SCH (09:00)
== END 2017-05-06 17:05 | disposition home or self-care (01) ==
LOC: C.EDB 10:38 → ENRESERV 13:53 → CANRESERV 13:53 → CANBEDREQ 13:58 → C.EDB 17:05
DX: R07.2 Precordial pain (principal); E78.5 Hyperlipidemia, unspecified; Z82.49 Family history of ischemic heart disease and other diseases of the circulatory system; Z87.891 Personal history of nicotine dependence; F41.9 Anxiety disorder, unspecified; J45.40 Moderate persistent asthma, uncomplicated; F50.00 Anorexia nervosa, unspecified; K21.9 Gastro-esophageal reflux disease without esophagitis; F32.9 Major depressive disorder, single episode, unspecified; M81.0 Age-related osteoporosis without current pathological fracture; F43.10 Post-traumatic stress disorder, unspecified; Z80.9 Family history of malignant neoplasm, unspecified; Z79.82 Long term (current) use of aspirin; Z79.899 Other long term (current) drug therapy; D06.9 Carcinoma in situ of cervix, unspecified